=== PATIENT | male | born 1960 | race Hispanic/Latino ===

== ENCOUNTER 2017-12-30 21:36 | Emergency (ER) | payer BC, OTHER ==
[~2017-12-30] VITALS: Ht 175.3 cm; Wt 83.0 kg
[~2017-12-30 21:36] MED LIST: ASPIR 8181 MG PO; CLOPIDOGREL75 MG PO; LIPITOR20 MG PO; LISINOPRIL10 MG PO; PLAVIX75 MG PO; XARELTO20 MG PO
[2017-12-30 22:02] LABS: BASOPHILS % 0.2 % (0.0-1.0); EOSINOPHILS # (AUTO) 0.4 (0.0-0.4); EOSINOPHILS % 3.2 % (0.0-6.0); HEMOGLOBIN 16.1 g/dL (14.0-18.0); LYMPHOCYTES % 31.4 % (18.0-39.1); MEAN CORPUSCULAR HEMOGLOBIN 32.2 pg (28-32); MONOCYTES # (AUTO) 0.9 (0.2-0.8); MONOCYTES % 7.4 % (4.4-11.3); NEUTROPHILS # (AUTO) 7.3 (2.1-6.9); NEUTROPHILS % 57.6 % (38.7-80.0); PLATELET COUNT 247 x10e3/uL (140-360); RED CELL DISTRIBUTION WIDTH 13.6 % (11.7-14.4)
[2017-12-30 22:11] LABS: INR 1.06
[2017-12-30 22:12] LABS: PARTIAL THROMBOPLASTIN TIME 27.9 seconds (23.8-35.5)
[2017-12-30 22:21] LABS: ALBUMIN/GLOBULIN RATIO 1.2 (0.8-2.0); ANION GAP 15.1 mmol/L (8-16); CALCIUM 9.9 mg/dL (8.4-10.2); CREATININE, SERUM 1.33 mg/dL (0.72-1.25); POTASSIUM 4.1 mmol/L (3.5-5.1)
[2017-12-30 22:28] LABS: CREATINE KINASE MB 0.7 ng/mL (0-5.0)
[2017-12-30 23:43] VITALS: BP 123/71
== END 2017-12-30 23:43 | disposition home or self-care (01) ==
LOC: ER 21:36
DX: I70.202 Unspecified atherosclerosis of native arteries of extremities, left leg (principal); I73.9 Peripheral vascular disease, unspecified; F17.210 Nicotine dependence, cigarettes, uncomplicated
CPT/HCPCS: 36415; 80053; 82550; 82553; 84484; 85025; 85610; 85730; 93926; 99283

== ENCOUNTER → 2018-05-15 | Day surgery (SDC) | payer OTHER ==
[2018-05-14 14:07] LABS: BASOPHILS # (AUTO) 0.1 (0.0-0.1); BASOPHILS % 0.5 % (0.0-1.0); EOSINOPHILS # (AUTO) 0.6 (0.0-0.4); EOSINOPHILS % 5.9 % (0.0-6.0); HEMATOCRIT 49.7 % (38.2-49.6); HEMOGLOBIN 16.6 g/dL (14.0-18.0); LYMPHOCYTES # (AUTO) 3.4 (1.0-3.2); LYMPHOCYTES % 36.5 % (18.0-39.1); MEAN CORPUSCULAR HEMOGLOBIN 31.9 pg (28-32); MEAN CORPUSCULAR HGB CONC 33.4 g/dL (31-35); MEAN CORPUSCULAR VOLUME 95.4 fL (81-99); MONOCYTES # (AUTO) 0.8 (0.2-0.8); NEUTROPHILS # (AUTO) 4.4 (2.1-6.9); NEUTROPHILS % 47.8 % (38.7-80.0); PLATELET COUNT 210 x10e3/uL (140-360); RED BLOOD COUNT 5.21 x10e6/uL (4.3-5.7); RED CELL DISTRIBUTION WIDTH 13.2 % (11.7-14.4)
[2018-05-14 14:17] LABS: INR 0.86; PROTHROMBIN TIME 12.5 seconds (11.9-14.5)
[2018-05-14 14:26] LABS: ALANINE AMINOTRANSFERASE 19 IU/L (0-55); ALBUMIN 4.5 g/dL (3.5-5.0); ALBUMIN/GLOBULIN RATIO 1.4 (0.8-2.0); ALKALINE PHOSPHATASE 99 IU/L (40-150); ANION GAP 16.7 mmol/L (8-16); BLOOD UREA NITROGEN 12 mg/dL (7-26); BUN/CREATININE RATIO 11 (6-25); CALCIUM 9.9 mg/dL (8.4-10.2); CARBON DIOXIDE 24 mmol/L (22-29); CHLORIDE 104 mmol/L (98-107); CREATININE, SERUM 1.09 mg/dL (0.72-1.25); EST GLOMERULAR FILTRATION RATE > 60 ML/MIN (60-); GLUCOSE 102 mg/dL (74-118); POTASSIUM 4.7 mmol/L (3.5-5.1); SODIUM 140 mmol/L (136-145)
[~2018-05-15] VITALS: Ht 177.8 cm; Wt 88.5 kg
[~2018-05-15] MED LIST changes: +FENTANYL CITRATE/PF 100MCG/2 ML INJ ONE; +HEPARIN SOD/SOD CHLORIDE 2,000 ML ONE; +HYDROCHLOROTHIA25 MG PO; +IOPAMIDOL 300MG/ML 100 ML INFUS..BTL IV ONE; +LIDOCAINE HCL 2% LOCAL 20 ML VIAL ONE; +MIDAZOLAM HCL 2 MG/2 ML VIAL ONE; +SODIUM CHLORIDE 0.9% 1000ML 1,000 ML ONE; +TICAGRELOR 90 MG TABLET ONE; +VERAPAMIL HCL 2.5 MG/ML 2 ML VIAL ONE
[2018-05-15 16:40] VITALS: BP 122/77
[2018-05-15 16:55] VITALS: BP 132/77
[2018-05-15 17:11] VITALS: BP 126/75
[2018-05-15 17:25] VITALS: BP 167/87
[2018-05-15 17:55] VITALS: BP 150/80
[2018-05-15 18:25] VITALS: BP 150/80
--- NOTE | 2018-05-16 15:07 | Operative Report ---
DATE OF PROCEDURE: May 15, 2018 INDICATIONS: Peripheral arterial disease, claudication of left lower extremity. PROCEDURES PERFORMED 1. Left abdominal aortogram. 2. Bilateral lower extremity angiograms. 3. Third-order catheter placement from the right femoral artery to left superficial femoral artery. 4. Additional third order catheter placement from the right femoral artery to the left popliteal artery. 5. Atherectomy of the left common femoral artery with balloon angioplasty with drug-eluting balloon. 6. Deployment of right groin VASCADE closer device. COMPLICATIONS: None. BLOOD LOSS: 10 mL. RECOMMENDATIONS: Continued medical therapy including dual antiplatelet therapy for at least 3 months. Smoking cessation. Access obtained in the right femoral artery. A 6-[place] sheath was placed. Abdominal aortogram demonstrated a stent in the left iliac artery with 80% in-stent re-stenosis with gradient of approximately 40 mm. The left and right femoral arteries had 20-30% stenosis. Left anterior tibial artery was occluded, two-vessel runoff to the left foot, 3-vessels runoff to the right foot. A decision was made to intervene on the left common femoral artery stent. The patient underwent atherectomy with large amounts of thrombus requiring secondary mechanical thrombectomy, balloon angioplasty with a 7 mm Lutonix balloon was performed. Excellent result, 2 vessel runoff to the left leg. No complications. Right groin repaired using VASCADE. The patient was discharged home same day. Job#: [id number] SHIVANI
== END | disposition home or self-care (01) ==
LOC: CATH LAB 12:51
PROVIDERS: ATTEND Internal Medicine Interventional Cardiology
DX: I70.212 Atherosclerosis of native arteries of extremities with intermittent claudication, left leg (principal); I10 Essential (primary) hypertension; Z01.812 Encounter for preprocedural laboratory examination; Z79.82 Long term (current) use of aspirin; Z86.718 Personal history of other venous thrombosis and embolism; Z82.49 Family history of ischemic heart disease and other diseases of the circulatory system
CPT/HCPCS: 36415; 37225; 75625; 75716; 80053; 85025; 85610; C1724; C1760; C1769 ×2; C1887; C2623; J2001; J2250; J7030; Q9967; 36247; 37186

== ENCOUNTER 2019-01-20 06:42 | Emergency (ER) | payer OTHER ==
[~2019-01-20] VITALS: Ht 177.8 cm; Wt 88.5 kg
[~2019-01-20 06:42] MED LIST changes: -FENTANYL CITRATE/PF 100MCG/2 ML INJ ONE; -HEPARIN SOD/SOD CHLORIDE 2,000 ML ONE; -IOPAMIDOL 300MG/ML 100 ML INFUS..BTL IV ONE; -LIDOCAINE HCL 2% LOCAL 20 ML VIAL ONE; -MIDAZOLAM HCL 2 MG/2 ML VIAL ONE; -SODIUM CHLORIDE 0.9% 1000ML 1,000 ML ONE; -TICAGRELOR 90 MG TABLET ONE; -VERAPAMIL HCL 2.5 MG/ML 2 ML VIAL ONE
[2019-01-20] MEDS ORDERED: KETOROLAC TROMETHAMINE 60 MG/2 ML VIAL IM ONE (08:00)
[2019-01-20 08:32] LABS: BILIRUBIN,URINE NEGATIVE (NEGATIVE); CLARITY,URINE SL CLOUDY (CLEAR); COLOR,URINE YELLOW (YELLOW); KETONES,URINE NEGATIVE (NEGATIVE); LEUKOCYTE ESTERASE ,URINE NEGATIVE (NEGATIVE); NITRITE,URINE NEGATIVE (NEGATIVE); PROTEIN,URINE DIPSTICK TRACE (NEGATIVE); URINE UROBILINOGEN 0.2 mg/dL (0.2 - 1)
--- NOTE | 2019-01-20 08:39 | Diagnostic Imaging Report ---
Exam: CT abdomen and pelvis Clinical history: Right flank pain Technique: Helical images of the abdomen and pelvis were obtained without contrast DOSE REDUCTION: The exams was performed according to the departmental dose-optimization program which includes automated exposure control, adjustment of the mA and/or kV according to patient size and/or use of iterative reconstruction technique. Next Findings: The lung bases are clear. There is no evidence of pleural effusion. The cardiac size is within normal limits. Noncontrast images of the liver, spleen, pancreas, gallbladder, adrenal glands, and right kidney are unremarkable. A 3 mm nephrolithiasis is noted in the left renal pelvis without evidence of hydronephrosis or hydroureter. The small and large bowels are normal in caliber without evidence of obstruction. The appendix is visualized and normal in caliber. Atherosclerotic calcification of aorta is noted. Otherwise, the aorta and IVC are normal in caliber. There is no evidence of lymphadenopathy or free fluid. The bladder, prostate, and seminal vesicles are unremarkable. Impression: 1. 3 mm left nephrolithiasis. Signed by: Dr. Esteban Bonds MD on 01/20/2019 8:36 AM
[2019-01-20 09:13] LABS: BACTERIA,URINE MANY /HPF; EPITHELIAL CELLS,URINE FEW /LPF; MUCUS,URINE MODERATE (RARE); RBC,URINE 0-5 /HPF (0-5); WBC,URINE (MAN) 0-5 /HPF (0-5)
== END 2019-01-20 09:56 | disposition home or self-care (01) ==
LOC: ER 06:42
DX: R10.9 Unspecified abdominal pain (principal); N20.0 Calculus of kidney
CPT/HCPCS: 74176; 81001; 99283; J1885

== ENCOUNTER 2019-11-14 15:15 | Inpatient (IN) | payer OTHER ==
[~2019-11-14] VITALS: Ht 177.8 cm; Wt 88.5 kg
[2019-11-14 16:17] LABS: BASOPHILS % 0.2 % (0.0-1.0); EOSINOPHILS # (AUTO) 0.4 (0.0-0.4); EOSINOPHILS % 3.1 % (0.0-6.0); HEMATOCRIT 47.5 % (38.2-49.6); HEMOGLOBIN 15.8 g/dL (14.0-18.0); LYMPHOCYTES # (AUTO) 3.2 (1.0-3.2); LYMPHOCYTES % 23.7 % (18.0-39.1); MEAN CORPUSCULAR HEMOGLOBIN 31.2 pg (28-32); MEAN CORPUSCULAR HGB CONC 33.3 g/dL (31-35); MEAN CORPUSCULAR VOLUME 93.9 fL (81-99); MONOCYTES # (AUTO) 1.1 (0.2-0.8); NEUTROPHILS # (AUTO) 8.6 (2.1-6.9); NEUTROPHILS % 64.6 % (38.7-80.0); PLATELET COUNT 229 x10e3/uL (140-360); RED BLOOD COUNT 5.06 x10e6/uL (4.3-5.7); RED CELL DISTRIBUTION WIDTH 13.4 % (11.7-14.4)
[2019-11-14 16:34] LABS: INR 0.94; PROTHROMBIN TIME 13.1 seconds (11.9-14.5)
[2019-11-14 16:35] LABS: PARTIAL THROMBOPLASTIN TIME 27.5 seconds (23.8-35.5)
--- NOTE | 2019-11-14 16:47 | Diagnostic Imaging Report ---
EXAMINATION: CHEST SINGLE (PORTABLE) COMPARISON: 11/27/2014 INDICATION: Chest pain ^CP ^[id number] ^1625 DISCUSSION: Frontal view of the chest obtained at 1613 hours. HEART AND MEDIASTINUM: The cardiomediastinal silhouette is unremarkable. LINES: None. LUNGS/PLEURA: The lungs are well inflated and clear. No pneumonia or pulmonary edema. No pleural effusion or pneumothorax. BONES AND SOFT TISSUES: Intact. No focal osseous lesions. The soft tissues are normal. IMPRESSION: No acute cardiopulmonary disease. Signed by: Dr. Nilton Krishna MD on 11/14/2019 4:44 PM
--- NOTE | 2019-11-14 16:49 | Diagnostic Imaging Report ---
History: Pain Comparison studies: None Technique: Axial images were obtained from the skull base to the vertex. Coronal and sagittal reconstructions obtained from the axial data. Dose modulation, iterative reconstruction, and/or weight based adjustment of the mA/kV was utilized to reduce the radiation dose to as low as reasonably achievable. Intravenous contrast: None Findings: Scalp/skull: No abnormalities. No fractures, blastic or lytic lesions. Extra-axial spaces: No masses. No fluid collections. Brain sulci: Appropriate for age. Ventricles: Normal in size and configuration. No hydrocephalus. Parenchyma: No abnormal densities. No masses, hemorrhage, acute or chronic cortical vascular insults. Sellar/suprasellar region: No abnormalities Craniocervical junction: Patent foramen magnum. No Chiari one malformation. Incidental findings: Scattered mucosal thickening in the ethmoid air cells. IMPRESSION: No intracranial abnormalities. Signed by: Dr. Aneesh Younger M.D. on 11/14/2019 4:46 PM
--- NOTE | 2019-11-14 16:53 | Diagnostic Imaging Report ---
History: Neck and arm pain Comparison studies: None Technique: Axial images were obtained through the cervical region.. Coronal and sagittal images reconstructed from the axial data. Dose modulation, iterative reconstruction, and/or weight based adjustment of the mA/kV was utilized to reduce the radiation dose to as low as reasonably achievable. Intravenous contrast: None Findings: Fractures: None. Soft tissues: No gross abnormalities. 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 Alignment: Slight reversal of the usual lordosis centered at C4-5. No scoliosis. Cervicomedullary junction: No abnormalities. The foramen magnum is patent. Vertebrae: No infection or neoplasm. Degenerative changes: * Focally calcified anterior annuli from C4 to C7 * Mild spinal canal stenosis at C6-C7 due to a disc osteophyte complex. * Patent foramina. No disc herniations. IMPRESSION: 1. No acute abnormalities. 2. Cannot adequately evaluate for ligament, spinal cord and or vascular abnormalities. 3. Degenerative changes as described. Signed by: Dr. Aneesh Younger M.D. on 11/14/2019 4:49 PM
[2019-11-14] MEDS ORDERED: ASPIRIN 81 MG CHEW TAB PO ONE (18:45)
[2019-11-14] MEDS ORDERED: ENOXAPARIN SODIUM INJ 100 MG/ML SYR SC ONE (18:45)
--- NOTE | 2019-11-14 19:09 | Emergency Department Note ---
History of Present Illnes History of Present Illness Chief Complaint: Abdominal Complaints History of Present Illness This is a 59 year old male atient in from home with complaints of a sharp pain that started in the left side of his head/neck and radiated to left upper chest & down his left arm. Patient states that the pain stated at 0200 today and woke him up from sleep. Mild SOB and diaphoresis assoc with episode Historian: Patient Arrival Mode: Car Mine Utility Operator Required: No Onset (how long ago): hour(s) Location: chest/neck/arm Quality: pressure/pain Radiation: Reports neck, Reports extremity Severity: moderate Onset quality: sudden Duration (how long): hour(s) (lasted ~1 hr) Timing of current episode: intermittent Progression: resolved Chronicity: new Context: Denies recent illness Relieving factors: none Exacerbating factors: none Associated symptoms: Reports diaphoresis, Reports shortness of breath Treatments prior to arrival: none Past Medical/Family History Physician Review I have reviewed the patient's past medical and family history. Any updates have been documented here. Past Medical History Recent Fever: No Clinical Suspicion of Infectio: No New/Unexplained Change in Ment: No Past Medical History: Hypertension, CAD, Hyperlipedemia Other Medical History: PAD Other Surgery: Angioplasty and stent placement in the left external iliac artery 2014 (Dr. Saini) Social History Smoking Cessation: Current every day smoker Counseling Performed: Yes Alcohol Use: Occasional Any Illegal Drug Use: No TB Exposure/Symptoms: No Physically hurt or threatened: No Family History Family history of heart diseas: Yes Other Last Tetanus: UTD Any Pre-Existing Lines (PICC,: No Is patient up to date on immun: Yes Last Flu: none Last Pneumovax: none Review of Systems Review of Systems Constitutional: Reports no symptoms EENTM: Reports no symptoms Cardiovascular: Reports as per HPI Respiratory: Reports as per HPI Gastrointestinal: Reports no symptoms Genitourinary: Reports no symptoms Musculoskeletal: Reports no symptoms Integumentary: Reports no symptoms Neurological: Reports as per HPI Psychological: Reports no symptoms Endocrine: Reports no symptoms Hematological/Lymphatic: Reports no symptoms Physical Exam Related Data Allergies: Coded Allergies: No Known Allergies (Unverified , 12/01/14) Triage Vital Signs Vital Signs Date Time Temp Pulse Resp B/P (MAP) Pulse Ox O2 Delivery O2 Flow Rate FiO2 11/14/19 15:24 98.6 60 16 135/90 100 Vital signs reviewed: Yes Physical Exam CONSTITUTIONAL Constitutional: Present well-developed, Present well-nourished HENT HENT: Present normocephalic, Present atraumatic, Present oropharynx clear/moist, Present nose normal HENT L/R: Present left ext ear normal, Present right ext ear normal EYES Eyes: Reports PERRL, Reports conjunctivae normal NECK Neck: Present ROM normal PULMONARY Pulmonary: Present effort normal, Present breath sounds normal CARDIOVASCULAR Cardiovascular: Present regular rhythm, Present heart sounds normal, Present capillary refill normal, Present normal rate GASTROINTESTINAL Abdominal: Present soft, Present nontender, Present bowel sounds normal GENITOURINARY Genitourinary: Present exam deferred SKIN Skin: Present warm, Present dry MUSCULOSKELETAL Musculoskeletal: Present ROM normal NEUROLOGICAL Neurological: Present alert, Present oriented x 3, Present no gross motor or sensory deficits PSYCHOLOGICAL Psychological: Present mood/affect normal, Present judgement normal Results Laboratory Result Diagram: 11/14/19 1556 Laboratory Laboratory Tests Test 11/14/19 15:56 11/14/19 15:52 White Blood Count 13.33 x10e3/uL (4.8-10.8) Red Blood Count 5.06 x10e6/uL (4.3-5.7) Hemoglobin 15.8 g/dL (14.0-18.0) Hematocrit 47.5 % (38.2-49.6) Mean Corpuscular Volume 93.9 fL (81-99) Mean Corpuscular Hemoglobin 31.2 pg (28-32) Mean Corpuscular Hemoglobin Concent 33.3 g/dL (31-35) Red Cell Distribution Width 13.4 % (11.7-14.4) Platelet Count 229 x10e3/uL (140-360) Neutrophils (%) (Auto) 64.6 % (38.7-80.0) Lymphocytes (%) (Auto) 23.7 % (18.0-39.1) Monocytes (%) (Auto) 8.0 % (4.4-11.3) Eosinophils (%) (Auto) 3.1 % (0.0-6.0) Basophils (%) (Auto) 0.2 % (0.0-1.0) Neutrophils # (Auto) 8.6 (2.1-6.9) Lymphocytes # (Auto) 3.2 (1.0-3.2) Monocytes # (Auto) 1.1 (0.2-0.8) Eosinophils # (Auto) 0.4 (0.0-0.4) Basophils # (Auto) 0.0 (0.0-0.1) Absolute Immature Granulocyte (auto 0.05 x10e3/uL (0-0.1) Prothrombin Time 13.1 seconds (11.9-14.5) Prothromb Time International Ratio 0.94 Activated Partial Thromboplast Time 27.5 seconds (23.8-35.5) Laboratory comments labs delayed due to chemistry machines in lab not working Imaging Imaging results reviewed: Yes Procedures 12 Lead ECG Interpretation ECG Interpretation : ECG: ECG 1 Date: Nov 14, 2019 Time: 16:02 Rhythm: sinus rhythm Rate: normal (68) QRS axis: left ST segment elevation: V1, V2 (upsloping), V3 (upsloping), V4 (upsloping) T waves normal: Yes Q waves: V1, V2, V3 Clinical Impression: abnormal ECG (poor RWP, ST elevation) Additional Comments ECG sent to Dr Alen Escobar - he feels this is not a STEMI, will see patient Assessment & Plan Medical Decision Making MDM chest pain, headache, CP radiating to left arm - check CBC, CHEM'S, ECG, CARDIACS, BNP, CXR, CT BRAIN - R/O STEMI, NSTEMI, PNEUMONIA, CEREBRAL BLEED (MAY NEED ANTICOAGULATION BECAUSE MY CONCERN IS MOSTLY THAT THIS IS ACS) Reassessment Reassessment REPORT TO DR HUMPHREYS - CARDIAC ENZYMES PENDING, I SPOKE WITH DR MENJIVAR FOR ADMISSION, DR Alen ESCOBAR FOR MANAGER OF INTERNAL AUDIT Assessment & Plan Final Impression: (1) Chest pain Depart Disposition: ADMITTED Last Vital Signs Date Time Temp Pulse Resp B/P (MAP) Pulse Ox O2 Delivery O2 Flow Rate FiO2 11/14/19 17:49 64 13 100 11/14/19 15:24 98.6 Home Meds Reported Medications Hydrochlorothiazide (HYDROCHLOROTHIAZIDE) 25 Mg Tablet, 12.5 MG PO DAILY, #30 TAB 05/14/18 Lisinopril (LISINOPRIL) 10 Mg Tablet, 10 MG PO DAILY, #30 TAB 12/12/14 Aspirin (ASPIR 81) 81 Mg Tablet.dr 81 MG PO DAILY 7/10/15 Medications in the ED Enoxaparin Sodium 90 mg NOW ONCE SC ; Start 11/14/19 at 18:45; Stop 11/14/19 at 18:46; Status UNV Aspirin 324 mg ONCE ONCE PO ; Start 11/14/19 at 18:45; Stop 11/14/19 at 18:46; Status UNV ALEXIS CAST MD Nov 14, 2019 19:09
[2019-11-14] MEDS ORDERED: NITROGLYCERIN 0.4 MG SUBL SL PRN (20:15)
[2019-11-14] MEDS ORDERED: ONDANSETRON HCL INJ 2MG/ML 2ML 2 MG/ML VIAL IV PRN (20:15)
[2019-11-14] MEDS ORDERED: MORPHINE SULFATE 2 MG/ML SYR 1ML IV PRN (20:15)
[2019-11-14 20:34] LABS: ANION GAP 16.2 mmol/L (8-16); BLOOD UREA NITROGEN 14 mg/dL (7-26); BUN/CREATININE RATIO 11 (6-25); CALCIUM 9.1 mg/dL (8.4-10.2); CARBON DIOXIDE 22 mmol/L (22-29); CHLORIDE 106 mmol/L (98-107); CREATININE, SERUM 1.23 mg/dL (0.72-1.25); EST GLOMERULAR FILTRATION RATE > 60 ML/MIN (60-); GLUCOSE 95 mg/dL (74-118); POTASSIUM 4.2 mmol/L (3.5-5.1); SODIUM 140 mmol/L (136-145)
[2019-11-14 20:35] LABS: ALANINE AMINOTRANSFERASE 27 IU/L (0-55); ALBUMIN 4.3 g/dL (3.5-5.0); ALBUMIN/GLOBULIN RATIO 1.4 (0.8-2.0); ALKALINE PHOSPHATASE 92 IU/L (40-150); CREATINE KINASE 402 IU/L (30-200); MAGNESIUM 2.3 MG/DL (1.3-2.1)
[2019-11-14] MEDS ORDERED: CLOPIDOGREL75 MG PO (20:36)
--- NOTE | 2019-11-14 21:19 | NUR ---
Spoke to Dr. Alen Escobar and notified of elevated troponin levels. New orders obtained.
[2019-11-14] MEDS ORDERED: CLOPIDOGREL BISULFATE 75 MG TAB PO ONE (21:30)
[2019-11-14] MEDS: FAMOTIDINE 20 MG/2 ML VIAL IV SCH (21:52)
[2019-11-14 23:03] VITALS: BP 124/78
[2019-11-15] VITALS (8 sets, daily range): BP systolic 118–156; BP diastolic 74–100
[2019-11-15 00:44] LABS: CREATINE KINASE MB 21.5 ng/mL (0-5.0)
[2019-11-15 05:06] LABS: BASOPHILS % 0.4 % (0.0-1.0); EOSINOPHILS # (AUTO) 0.5 (0.0-0.4); HEMATOCRIT 46.5 % (38.2-49.6); LYMPHOCYTES # (AUTO) 3.7 (1.0-3.2); LYMPHOCYTES % 37.7 % (18.0-39.1); MEAN CORPUSCULAR HEMOGLOBIN 30.6 pg (28-32); MEAN CORPUSCULAR HGB CONC 32.3 g/dL (31-35); MEAN CORPUSCULAR VOLUME 94.9 fL (81-99); MONOCYTES # (AUTO) 0.9 (0.2-0.8); MONOCYTES % 9.7 % (4.4-11.3); NEUTROPHILS # (AUTO) 4.6 (2.1-6.9); PLATELET COUNT 221 x10e3/uL (140-360); RED CELL DISTRIBUTION WIDTH 13.3 % (11.7-14.4)
[2019-11-15 05:28] LABS: ALANINE AMINOTRANSFERASE 22 IU/L (0-55); ALBUMIN 3.5 g/dL (3.5-5.0); ALBUMIN/GLOBULIN RATIO 1.2 (0.8-2.0); ALKALINE PHOSPHATASE 94 IU/L (40-150); ANION GAP 10.2 mmol/L (8-16); BLOOD UREA NITROGEN 12 mg/dL (7-26); BUN/CREATININE RATIO 11 (6-25); CALCIUM 9.2 mg/dL (8.4-10.2); CARBON DIOXIDE 29 mmol/L (22-29); CHLORIDE 107 mmol/L (98-107); CHOLESTEROL 179 MD/DL (0-199); CREATININE, SERUM 1.14 mg/dL (0.72-1.25); EST GLOMERULAR FILTRATION RATE > 60 ML/MIN (60-); GLUCOSE 101 mg/dL (74-118); POTASSIUM 5.2 mmol/L (3.5-5.1); SODIUM 141 mmol/L (136-145); TRIGLYCERIDES 184 MG/DL (0-149)
[2019-11-15 05:50] LABS: CREATINE KINASE MB 14.4 ng/mL (0-5.0)
--- NOTE | 2019-11-15 07:00 | NUR ---
BEDSIDE SHIFT REPORT FROM WOODEN BOAT BUILDER, FABIANO LAWS. PT DENIES NEEDS AT THIS TIME.
[2019-11-15] MEDS: FAMOTIDINE 20 MG/2 ML VIAL IV SCH ×2 (08:11→20:38)
[2019-11-15] MEDS: ASPIRIN 81 MG ENTERIC COATED PO SCH (08:12)
[2019-11-15] MEDS: CLOPIDOGREL BISULFATE 75 MG TAB PO SCH (08:12)
[2019-11-15] MEDS ORDERED: LIPITOR10 MG PO (08:38)
[2019-11-15] MEDS: HYDROCHLOROTHIAZIDE 25 MG TAB PO SCH (09:00)
[2019-11-15 09:07] LABS: ALANINE AMINOTRANSFERASE 22 IU/L (0-55); ALBUMIN 3.5 g/dL (3.5-5.0); ALBUMIN/GLOBULIN RATIO 1.2 (0.8-2.0); ALKALINE PHOSPHATASE 94 IU/L (40-150); BLOOD UREA NITROGEN 12 mg/dL (7-26); BUN/CREATININE RATIO 13 (6-25); CALCIUM 8.6 mg/dL (8.4-10.2); CARBON DIOXIDE 24 mmol/L (22-29); CHLORIDE 109 mmol/L (98-107); CREATININE, SERUM 0.94 mg/dL (0.72-1.25); EST GLOMERULAR FILTRATION RATE > 60 ML/MIN (60-); GLUCOSE 105 mg/dL (74-118); SODIUM 140 mmol/L (136-145)
--- NOTE | 2019-11-15 10:40 | Consultation ---
DATE OF CONSULTATION: 11/15/2019 Cardiology Consultation. REQUESTING PHYSICIAN: Dalton Omalley MD. REASON FOR CONSULTATION: Elevated troponin. HISTORY OF PRESENT ILLNESS: This is a 59-year-old male with history of hypertension, who presents with complaints of left-sided neck and chest pain. The patient reports that he woke up with pain on the left side of his neck radiating to shoulder and upper chest this morning. The pain was described as pressure 8/10 in severity without shortness of breath, nausea, or diaphoresis. It lasted approximately one and a half hours. He presented to the ER for evaluation and was found to have an elevated troponin for which Cardiology is consulted. He denies any edema, orthopnea, or PND. Denies any history of heart disease. REVIEW OF SYSTEMS: Negative except as per HPI. PAST MEDICAL HISTORY: 1. Hypertension. 2. Peripheral arterial disease, status post drug-coated balloon angioplasty of 80% in-stent restenoses of the left external iliac artery stent and 100% SALES VENDOR of the left ADA. PAST SURGICAL HISTORY: As above. ALLERGIES: PLEASE SEE EMR. MEDICATIONS: Please see medication list. SOCIAL HISTORY: He smokes a pack a day for the last 25 years. Drinks approximately 2 times a week. No illicit drugs. FAMILY HISTORY: Pertinent for father with unspecified heart disease. PHYSICAL EXAMINATION: GENERAL: Awake and alert in no acute distress. HEENT: Normocephalic, atraumatic. Pupils equal. No scleral icterus. NECK: Supple. No thyromegaly or cervical lymphadenopathy. No carotid bruits. LUNGS: Clear to auscultation bilaterally. No wheezes or crackles. CARDIOVASCULAR: Normal rate and regular rhythm. No murmur. Normal S1, S2. ABDOMEN: Soft, nontender. EXTREMITIES: No edema. NEUROLOGIC: Nonfocal exam. LABORATORY DATA: WBC 9.72, hemoglobin 15, hematocrit 46.5, platelets 221,000. Sodium 140, potassium 4, chloride 109, CO2 24, BUN 12, and creatinine 0.94. Troponin 4.4 on arrival, now downtrending. EKG, normal sinus rhythm, left axis deviation, inferior infarct age undetermined and possible anterior infarct age undetermined. IMPRESSION: 1. Non-ST elevation myocardial infarction. 2. Hypertension. 3. Peripheral arterial disease. 4. Tobacco use. RECOMMENDATIONS: Recommendations to keep the patient n.p.o., plan for cardiac catheterization today. Obtain echo, fasting lipid panel is pending. Adjust statin therapy as necessary. Continue dual antiplatelet therapy. Blood pressure is adequately controlled. Further recommendations pending test results. Thank you for this consult. We will continue to follow. Stephanie Cody MD ABS/MODL /[id number]
--- NOTE | 2019-11-15 11:00 | NUR ---
PT OFF THE FLOOR TO COUNTY AGRICULTURAL AGENT.
[2019-11-15] MEDS ORDERED: MIDAZOLAM HCL 2 MG/2 ML VIAL ONE ×2 (11:48→12:57)
[2019-11-15] MEDS ORDERED: FENTANYL CITRATE/PF 100MCG/2 ML INJ ONE (11:48)
[2019-11-15] MEDS ORDERED: HEPARIN SOD (PORCINE) 1000 UNIT/ML 30ML ONE (11:48)
[2019-11-15] MEDS ORDERED: NITROGLYCERIN/D5W 200 MCG/ML 250 ML ONE (11:49)
[2019-11-15] MEDS ORDERED: HEPARIN SOD/SOD CHLORIDE 2,000 ML ONE (11:49)
[2019-11-15] MEDS ORDERED: IOPAMIDOL 370 MG/ML 200 ML INFUS..BTL INJ ONE (11:49)
[2019-11-15] MEDS ORDERED: LIDOCAINE HCL 2% LOCAL 20 ML VIAL ONE (11:49)
[2019-11-15] MEDS ORDERED: SODIUM CHLORIDE 0.9% 1000ML 1,000 ML ONE ×2 (11:49→11:59)
[2019-11-15] MEDS ORDERED: CLOPIDOGREL BISULFATE 75 MG TAB ONE (12:58)
--- NOTE | 2019-11-15 13:00 | NUR ---
PT BACK TO ROOM [facility] APPLIANCE SERVICE TECHNICIAN. VITALS WNL. PT DENIES NEEDS AT THIS TIME.
[2019-11-15 14:49] LABS: CHOL/HDL RATIO 7.8 (3.9-4.7); HDL CHOLESTEROL 23 MG/DL (40-60); LDL CHOLESTEROL 119 MG/DL (60-130)
--- NOTE | 2019-11-15 15:11 | NUR ---
PT GIVEN 500 CC OF NS AT 75ML/HR FROM BAG THAT WAS BROUGHT WITH THE PT. PT TOLERATED.
[2019-11-15] MEDS ORDERED: ATORVASTATIN 20 MG TAB PO SCH (21:00)
[2019-11-16] VITALS: BP 139/89
[2019-11-16 04:00] VITALS: BP 135/85
[2019-11-16 05:08] LABS: BASOPHILS % 0.2 % (0.0-1.0); EOSINOPHILS # (AUTO) 0.3 (0.0-0.4); HEMATOCRIT 44.4 % (38.2-49.6); HEMOGLOBIN 14.6 g/dL (14.0-18.0); LYMPHOCYTES # (AUTO) 2.6 (1.0-3.2); LYMPHOCYTES % 26.7 % (18.0-39.1); MEAN CORPUSCULAR HEMOGLOBIN 31.2 pg (28-32); MEAN CORPUSCULAR HGB CONC 32.9 g/dL (31-35); MEAN CORPUSCULAR VOLUME 94.9 fL (81-99); MONOCYTES # (AUTO) 1.1 (0.2-0.8); NEUTROPHILS # (AUTO) 5.6 (2.1-6.9); NEUTROPHILS % 58.8 % (38.7-80.0); PLATELET COUNT 202 x10e3/uL (140-360); RED BLOOD COUNT 4.68 x10e6/uL (4.3-5.7); RED CELL DISTRIBUTION WIDTH 13.2 % (11.7-14.4)
[2019-11-16 05:36] LABS: ALANINE AMINOTRANSFERASE 19 IU/L (0-55); ALBUMIN 3.4 g/dL (3.5-5.0); ALBUMIN/GLOBULIN RATIO 1.1 (0.8-2.0); ALKALINE PHOSPHATASE 91 IU/L (40-150); ANION GAP 12.5 mmol/L (8-16); BLOOD UREA NITROGEN 12 mg/dL (7-26); BUN/CREATININE RATIO 11 (6-25); CALCIUM 8.8 mg/dL (8.4-10.2); CARBON DIOXIDE 27 mmol/L (22-29); CHLORIDE 106 mmol/L (98-107); CREATININE, SERUM 1.11 mg/dL (0.72-1.25); EST GLOMERULAR FILTRATION RATE > 60 ML/MIN (60-); GLUCOSE 105 mg/dL (74-118); POTASSIUM 4.5 mmol/L (3.5-5.1); SODIUM 141 mmol/L (136-145)
--- NOTE | 2019-11-16 07:00 | NUR ---
BEDSIDE SHIFT REPORT FROM BUSINESS ANALYTICS ANALYST RN. PT DENIES NEEDS AT THIS TIME.
[2019-11-16 07:47] VITALS: BP 135/85
[2019-11-16 08:07] VITALS: BP 135/85
[2019-11-16] MEDS: FAMOTIDINE 20 MG/2 ML VIAL IV SCH (08:24)
[2019-11-16] MEDS: CLOPIDOGREL BISULFATE 75 MG TAB PO SCH (08:24)
[2019-11-16] MEDS: HYDROCHLOROTHIAZIDE 25 MG TAB PO SCH (08:24)
[2019-11-16] MEDS: ASPIRIN 81 MG ENTERIC COATED PO SCH (08:24)
--- NOTE | 2019-11-16 10:31 | NUR ---
CLEARED BY DR. CARRINGTON FOR DISCHARGE HOME, SCRIPTS ON THE CHART, FOLLOW UP IN 2 WEEKS.
[2019-11-16] MEDS ORDERED: CARVEDILOL 3.125 MG TAB PO SCH (10:45)
[2019-11-16] MEDS ORDERED: COREG3.125 MG (11:31)
[2019-11-16] MEDS ORDERED: ATORVASTATIN CA20 MG PO (11:32)
[2019-11-16] MEDS ORDERED: SODIUM CHLORIDE 0.9% 100 ML ONE (12:18)
[2019-11-16] MEDS ORDERED: IOPAMIDOL 370 MG/ML 200 ML INFUS..BTL INJ ONE (12:19)
[2019-11-16 12:25] VITALS: BP 140/84
--- NOTE | 2019-11-16 16:02 | Diagnostic Imaging Report ---
History: Carotid stenosis Comparison studies:None Technique: Axial images were obtained from the thoracic inlet through the skull base following administration of IV contrast. Multiplanar coronal, sagittal, MIP and volume under 3-D images were reformatted from the axial source data. Dose modulation, iterative reconstruction, and/or weight based adjustment of the mA/kV was utilized to reduce the radiation dose to as low as reasonably achievable. Intravenous contrast: 100 cc of Omnipaque 300. If present, stenosis is calculated utilizing the NASCET method which calculates the degree of stenosis with reference to the normal lumen of the carotid artery distal to the stenosis. Findings: Aortic arch and major vessels: Mild scattered hard and soft plaque in the aortic arch. Soft plaque in the proximal left subclavian artery which extends to the left vertebral artery origin results in approximately 25-30% stenosis. Common carotid arteries: The origin of the right common carotid artery is suboptimally evaluated due to beam-hardening artifact from dense IV contrast in the overlying vein. Both common carotid arteries are otherwise patent and are with mild luminal regularity due to soft atherosclerotic plaque which result in only mild stenosis (25-30% on the right and 20% on the left). Carotid bulbs: Patent, no (0%) stenosis bilaterally. Mild nonstenotic calcified plaque on the right. Internal carotid arteries: Patent, no stenosis. Vertebral arteries: Patent, no stenosis on the right. Approximate 70% stenosis at the left vertebral artery origin due to soft atherosclerotic plaque. The left vertebral artery is dominant. Included [place]: Patent internal carotid arteries. No proximal branch occlusion or stenosis in the bilateral anterior cerebral arteries or middle cerebral arteries. 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 The basilar artery is patent and there is no proximal branch occlusion or stenosis in the bilateral posterior cerebral arteries. There is anatomical variant right --type OYSTER PICKER origin. Incidental findings: Maxillary dental caries with multifocal periodontal disease with multiple periapical lucencies. Scattered nonspecific inflammatory mucosal thickening throughout the paranasal sinuses which are partially opacified. IMPRESSION: 1. Scattered atherosclerosis with atherosclerotic plaques as described. 2. Approximate 70% stenosis at the left vertebral artery origin. 3. No (0%) stenosis at the carotid bulbs by NASCET criteria. Signed by: Dr. Helder Lopez M.D. on 11/16/2019 3:59 PM
--- NOTE | 2019-11-16 16:52 | Progress Note ---
DATE: 11/16/2019 Cardiology Progress Note SUBJECTIVE: The patient denies chest pain or shortness of breath. He had cardiac catheterization done yesterday with PCI of the LAD with three stents. We will plan for staged PCI of the RCA as an outpatient. OBJECTIVE: VITAL SIGNS: Temperaure 98.3 degrees, pulse 59, respiratory rate 15, blood pressure 135/85, oxygen saturation 100% on room air. GENERAL: Awake, alert, in no acute distress. LUNGS: Clear to auscultation bilaterally. No wheezes or crackles. CARDIOVASCULAR: Normal rate. Regular rhythm. No murmur. Normal S1 and S2. ABDOMEN: Soft, nontender. EXTREMITIES: No edema. Right groin without hematoma or bruit. Bruising is noted mainly, mildly tender to palpation. CARDIAC MEDICATIONS: 1. Carvedilol 3.125 mg p.o. b.i.d. 2. Plavix 75 mg p.o. daily. 3. Aspirin 81 mg p.o. daily. 4. Atorvastatin 20 mg p.o. at bedtime. LABORATORY DATA: WBC 9.58, hemoglobin 14.6, hematocrit 44.4, platelets 202. Sodium 141, potassium 4.5, chloride 106, CO2 of 27, BUN 12, creatinine 1.11. TELEMETRY: Personally reviewed and interpreted revealing normal sinus rhythm. IMPRESSION: 1. Non-ST elevation myocardial infarction. 2. Hypertension. 3. Peripheral arterial disease. 4. Carotid artery disease. 5. Tobacco use. RECOMMENDATIONS: The patient had PCI of the LAD. He will need staged PCI of the RCA as an outpatient. The patient was counseled on the importance of dual antiplatelet therapy with aspirin and Plavix. Increase atorvastatin to achieve LDL of less than 70. Given regional wall motion abnormalities, we will start the patient on carvedilol. Continue lisinopril. Discontinue hydrochlorothiazide. Carotid Doppler did not reveal hemodynamically significant disease, but he did have moderate atherosclerotic plaque in the bilateral common carotid arteries. CTA of the neck was reviewed. There is no hemodynamically significant disease in the carotid arteries, but he does have significant stenosis of the left vertebral artery at the origin. Risk factor modification and medical management. The patient was counseled strongly on the importance of smoking cessation. Please have the patient follow up in the office in 2 weeks. Thank you for this consult. We will continue to follow. MD DEMETRIS Gunter/LENORE /[id number]
--- NOTE | 2019-11-19 10:53 | Discharge Summary ---
ADMISSION DIAGNOSES: Chest pain, neck and scalp pain, coronary artery disease, hypertension, elevated BNP. DISCHARGE DIAGNOSES: Chest pain, neck and scalp pain, coronary artery disease, hypertension, elevated BNP, carotid stenosis, CAD requiring PCI, hyperlipidemia. HISTORY: CAD with stents, hypertension, hyperlipidemia. SURGICAL HISTORY: Left lower extremity PCI. FAMILY HISTORY: The patient's aunt, uncles, and mother had diabetes. The patient's father had cancer and a stroke. SOCIAL HISTORY: Occasional alcohol use, 1 pack of cigarettes a day. HOSPITAL COURSE: A 59-year-old male admits with complaints of posterior left head and neck pressure that began Friday morning. The pain radiated to his left shoulder and upper arm. He denies shortness of breath, diaphoresis, dizziness, and chest pain. He took Pepto-Bismol and NSAIDs and the pain went away. On admission, troponins were 4.44, trended down. Chest x-ray was negative. Echo showed an EF of 50%. The patient was started on aspirin, Plavix, and Lipitor. Cardiology was consulted. CT of the C-spine was negative. Carotid Doppler showed evidence of carotid stenosis, so a CTA of the neck was done, which showed scattered arthrosclerosis without arthrosclerotic plaque, approximately 70% stenosis of the left vertebral artery origin, 0 stenosis of the carotid bulbs. The patient was then taken for a heart catheterization and had 3 stents on the LAD. The patient is okay to discharge home with new prescriptions for Lipitor and Coreg. He will continue aspirin and Plavix as well as lisinopril. He was advised to stop his hydrochlorothiazide. The patient understands discharge instructions and agrees to plan. He will follow up with primary care and Cardiology in 1 to 2 weeks. Dictated by Vanessa Shah NP MD ABBY Gomez/LENORE /[id number]
--- NOTE | 2019-12-02 11:41 | Operative Report ---
DATE OF PROCEDURE: 11/15/2019 SURGEON: Abrahan Astorga DO PROCEDURES PERFORMED: 1. Conscious sedation, 1 hour. 2. Selective coronary angiography x2. 3. Percutaneous transluminal coronary angioplasty and drug-eluting stent placement from the mid to distal LAD. 4. Left heart catheterization. PREPROCEDURE DIAGNOSIS: Precordial pain with elevated troponins. POSTPROCEDURE DIAGNOSIS: Coronary artery disease. ESTIMATED BLOOD LOSS: Less than 20 mL. SPECIMENS REMOVED: None. PROCEDURE IN DETAIL: After informed consent was obtained, the patient was brought to the cardiac catheterization laboratory in a fasting and nonsedated state. Bilateral groins were prepped and draped in usual sterile fashion. His right wrist was prepped and draped in usual sterile fashion. Using 2% lidocaine, this was infiltrated over the right anterior groin for local anesthesia. Using a micropuncture needle, the right common femoral artery was accessed via modified Seldinger technique and a 6-Fijian sheath was placed. The patient received fentanyl and midazolam for 1 hour, administered by the supervisor laboratory animal facility nurse and his physiologic and neurologic status were monitored by myself and supervisor laboratory animal facility staff. Diagnostic coronary angiography was performed and left heart catheterization was performed, which showed three severe tandem LAD lesions. Decision was made to intervene. The patient's left main was cannulated with a 6-Fijian XB LAD 3.5 guide catheter. Lesion was crossed with a Runthrough wire, then pre-dilated with 2.5 x 12 balloons. Next, the distal LAD was stented with a 3 x 38 synergy drug-eluting stent. The midportion was stented in an overlapping fashion with a 3.5 x 38 Synergy drug-eluting stent. Next, the proximal portion was stented with a 4 x 16 Synergy drug-eluting stent. The entire stent leak was then post dilated with a 4 mm noncompliant balloon. The patient tolerated the procedure well with no immediate complications and transferred back to his room in stable condition. Hemostasis was achieved via Mynx device. PROCEDURAL FINDINGS: 1. Left main coronary artery is patent. 2. The proximal LAD is patent and there are three severe tandem LAD lesions starting in the midportion, extending down into the distal LAD. The ostium of the first diagonal branch has a 60% stenosis, however, it is small, less than 2 mm vessel. 3. Left circumflex coronary artery provides one obtuse marginal vessel and luminal irregularities. 4. Right coronary artery is a medium-sized vessel, provides posterior lateral branch in the PDA. PDA itself with 60% stenosis and the distal RCA has a 70% stenosis. IMPRESSION: Coronary artery disease, status post intervention of the LAD. RECOMMENDATIONS: Continue dual-antiplatelet therapy. DO LASHELL Pascual/LENORE /[id number]
== END 2019-11-16 12:45 | disposition home or self-care (01) | DRG 247 ==
LOC: ER 15:15 → ERHOLD 20:13 → IMCU 22:27
PROVIDERS: ADMIT Internal Medicine; ATTEND Internal Medicine
PROC: 027034Z Dilation of Coronary Artery, One Artery with Drug-eluting Intraluminal Device, Percutaneous Approach (ICD-10-PCS; principal; 2019-11-15)
PROC: 4A023N7 Measurement of Cardiac Sampling and Pressure, Left Heart, Percutaneous Approach (ICD-10-PCS; 2019-11-15)
PROC: B2111ZZ Fluoroscopy of Multiple Coronary Arteries using Low Osmolar Contrast (ICD-10-PCS; 2019-11-15)
PROC: B2151ZZ Fluoroscopy of Left Heart using Low Osmolar Contrast (ICD-10-PCS; 2019-11-15)
DX: I21.4 Non-ST elevation (NSTEMI) myocardial infarction (principal); I10 Essential (primary) hypertension; I73.9 Peripheral vascular disease, unspecified; I25.10 Atherosclerotic heart disease of native coronary artery without angina pectoris; I65.29 Occlusion and stenosis of unspecified carotid artery; E78.5 Hyperlipidemia, unspecified; Z11.9 Encounter for screening for infectious and parasitic diseases, unspecified; Z72.0 Tobacco use; Z95.5 Presence of coronary angioplasty implant and graft; Z82.49 Family history of ischemic heart disease and other diseases of the circulatory system; Z83.3 Family history of diabetes mellitus; Z82.3 Family history of stroke; Z80.9 Family history of malignant neoplasm, unspecified; Z72.89 Other problems related to lifestyle
CPT/HCPCS: 36415; 70450; 70498; 71045; 72125; 80053; 80061; 82550; 82553; 83735; 83880; 84443; 84484; 85025; 85610; 85730; 87635; 92928; 93005; 93306; 93458; 93880; 99152; 99153; 99284; C1725; C1760; C1769; C1874; J1644; J1650; J2001; J2250; J3010; J7030; J7050; Q9967